=== PATIENT | female | born 1940 | race Caucasian/White ===

== ENCOUNTER 2018-04-03 06:42 | Day surgery (SDC) | payer MEDICARE ==
[~2018-04-03 06:42] MED LIST: Lactated Ringers 1,000 ML IV SCH; Lidocaine 1%/Sod Bicarbonate in NS 8.4% 1 ML Syringe IDERM PRN; Sodium Chloride 0.9% 10 ML Syringe FLUSH PRN
[2018-04-03] MEDS ORDERED: Sodium Chloride 0.9% 50 ML SDV ONE (07:18)
[2018-04-03] MEDS ORDERED: Lidocaine 1% with EPINEPHrine 1:100,000 20 ML MDV ONE (07:18)
--- NOTE | 2018-04-03 07:32 | PCM.PREANE ---
Preanesthetic Assessment - Procedure Proposed Procedure: Anterior and Posterior Repair with possible Colpoclesis - Anesthesia/Transfusion/Family Hx Anesthesia History: Prior Anesthesia Without Reaction Family History of Anesthesia Reaction: No Transfusion History: No Prior Transfusion(s) Intubation History: Unknown - Review of Systems General: No Symptoms Pulmonary: No Symptoms Cardiovascular: No Symptoms, Other (pacemaker placed on 03/03/18 for complete heart block ) Gastrointestinal: No Symptoms Neurological: No Symptoms Other: Reports: None - Physical Assessment O2 Sat by Pulse Oximetry: 95 Respiratory Rate: 16 Vital Signs: Last Vital Signs Temp 36.8 C 04/03/18 06:45 Pulse 75 04/03/18 06:45 Resp 16 04/03/18 06:45 BP 144/88 H 04/03/18 06:45 Pulse Ox 95 04/03/18 06:45 ASA Class: 3 Mental Status: Alert & Oriented x3 Airway Class: Mallampati = 2 Dentition: Reports: Normal Dentition Thyro-Mental Finger Breadths: 2 Mouth Opening Finger Breadths: 4 ROM/Head Extension: Full (reports arthritis in neck) Lungs: Clear to Auscultation, Normal Respiratory Effort - Lab Values: Laboratory Last Values WBC 7.53 K/mm3 (3.98-10.04) 04/01/18 10:57 RBC 4.73 M/mm3 (3.98-5.22) 04/01/18 10:57 Hgb 13.4 gm/L (11.2-15.7) 04/01/18 10:57 Hct 40.8 % (34.1-44.9) 04/01/18 10:57 MCV 86.3 fl (79.4-94.8) 04/01/18 10:57 MCH 28.3 pg (25.6-32.2) 04/01/18 10:57 MCHC 32.8 g/dl (32.2-35.5) 04/01/18 10:57 RDW Std Deviation 46.7 fL (36.4-46.3) H 04/01/18 10:57 Plt Count 222 K/mm3 (182-369) 04/01/18 10:57 MPV 10.7 fl (9.4-12.3) 04/01/18 10:57 Neut % (Auto) 62.9 % (34.0-71.1) 04/01/18 10:57 Lymph % (Auto) 26.0 % (19.3-51.7) 04/01/18 10:57 Parker % (Auto) 9.0 % (4.7-12.5) 04/01/18 10:57 Eos % (Auto) 1.7 (0.7-5.8) 04/01/18 10:57 Baso % (Auto) 0.1 % (0.1-1.2) 04/01/18 10:57 Neut # (Auto) 4.73 K/mm3 (1.56-6.13) 04/01/18 10:57 Lymph # (Auto) 1.96 K/mm3 (1.18-3.74) 04/01/18 10:57 Parker # (Auto) 0.68 K/mm3 (0.24-0.36) H 04/01/18 10:57 Eos # (Auto) 0.13 K/mm3 (0.04-0.36) 04/01/18 10:57 Baso # (Auto) 0.01 K/mm3 (0.01-0.08) 04/01/18 10:57 Urine Color Yellow (Yellow) 04/01/18 10:57 Urine Appearance Clear (Clear) 04/01/18 10:57 Urine pH 7.0 (5.0-8.0) 04/01/18 10:57 Ur Specific [place] 1.020 (1.005-1.030) 04/01/18 10:57 Urine Protein Negative (Negative) 04/01/18 10:57 Urine Glucose (UA) Negative (Negative) 04/01/18 10:57 Urine Ketones Negative (Negative) 04/01/18 10:57 Urine Occult Blood Negative (Negative) 04/01/18 10:57 Urine Nitrite Negative (Negative) 04/01/18 10:57 Urine Bilirubin Negative (Negative) 04/01/18 10:57 Urine Urobilinogen 0.2 (0.2-1.0) 04/01/18 10:57 Ur Leukocyte Esterase Trace (Negative) H 04/01/18 10:57 - Allergies Allergies/Adverse Reactions: Allergies Allergy/AdvReac Type Severity Reaction Status Date / Time Sulfa (Sulfonamide Allergy Rash Verified 04/02/18 17:34 Antibiotics) - Blood Blood Available: No - Anesthesia Plan Pre-Op Medication Ordered: None - Acknowledgements Anesthesia Type Planned: General Anesthesia Pt an Appropriate Candidate for the Planned Anesthesia: Yes Alternatives and Risks of Anesthesia Discussed w Pt/Guardian: Yes Pt/Guardian Understands and Agrees with Anesthesia Plan: Yes PreAnesthesia Questionnaire HEENT History: Reports: Impaired Vision, Other (See Below) Other HEENT History: wears glasses Cardiovascular History: Reports: High Cholesterol, Pacemaker Respiratory History: Reports: None Gastrointestinal History: Reports: Diverticulosis Genitourinary History: Reports: Other (See Below) Other Genitourinary History: cystocele DIRECTOR DATA MANAGEMENT History: Reports: , Other (See Below) Other OB/BYN History: bacterial vaginosis, pelvic relaxation, vaginal discahrge Musculoskeletal History: Reports: Arthritis, Osteoarthritis, Osteoporosis, Other (See Below) Other Musculoskeletal History: scoliosis Neurological History: Reports: None Psychiatric History: Reports: Other (See Below) Other Psychiatric History: insomnia Endocrine/Metabolic History: Reports: None Hematologic History: Reports: None Immunologic History: Reports: None Oncologic (Cancer) History: Reports: None Dermatologic History: Reports: Other (See Below) Other Dermatologic History: skin lipoma, herpes zoster - Past Surgical History Head Surgeries/Procedures: Reports: None HEENT Surgical History: Reports: Tonsillectomy Cardiovascular Surgical History: Reports: None Respiratory Surgical History: Reports: None GI Surgical History: Reports: Colonoscopy Female Surgical History: Reports: Hysterectomy Endocrine Surgical History: Reports: None Neurological Surgical History: Reports: None Musculoskeletal Surgical History: Reports: Other (See Below) Other Musculoskeletal Surgeries/Procedures:: bilateral hip replacements, bilateral knee replacements, shoulder replacement Oncologic Surgical History: Reports: None - SUBSTANCE USE Smoking Status *Q: Never Smoker Recreational Drug Use History: No - HOME MEDS Home Medications: Home Meds Ca Carbonate/Vitamin D3/Vit K [Calcium + D Soft Chewable Tab] 1 tab PO DAILY 05/13 [History] Cholecalciferol (Vitamin D3) [Vitamin D3] 1,000 unit PO DAILY 04/02/18 [History] Dorzolamide HCl/Timolol Maleat [Cosopt Eye Drops] 1 drop EYEBOTH BID 04/02/18 [ History] Zolpidem Tartrate [Ambien] 5 mg PO BEDTIME PRN 04/02/18 [History] - CURRENT (IN HOUSE) MEDS Current Meds: Current Medications Lactated Ringer's (Ringers, Lactated) 1,000 mls @ 125 mls/hr IV ASDIRECTED SHIELA Lidocaine/Sodium Bicarbonate (Buffered Lidocaine 1% In Ns 8.4%) 0.25 ml IDERM ONETIME PRN PRN Reason: Prior to IV Start Sodium Chloride (Saline Flush) 10 ml FLUSH ASDIRECTED PRN PRN Reason: Keep Vein Open Discontinued Medications Lidocaine/Epinephrine (Xylocaine 1% With Epinephrine 1:100,000) Confirm Administered Dose 20 ml .ROUTE .STK-MED ONE Stop: 04/03/18 07:19 Sodium Chloride (Normal Saline) Confirm Administered Dose 50 ml .ROUTE .STK-MED ONE Stop: 04/03/18 07:19
[2018-04-03] MEDS ORDERED: Propofol 200 MG/20 ML SDV ONE (07:39)
[2018-04-03] MEDS ORDERED: fentaNYL 100 MCG/2 ML SDV ONE (07:39)
[2018-04-03] MEDS ORDERED: Rocuronium 50 MG/5 ML Vial ONE (07:40)
[2018-04-03] MEDS ORDERED: ceFAZolin 1 GM Vial ONE (07:40)
[2018-04-03] MEDS ORDERED: Lidocaine 1% 4 ML ONE (07:40)
[2018-04-03] MEDS ORDERED: Phenylephrine/Normal Saline 100 MCG/ML 10 ML Syringe ONE ×2 (08:20→09:20)
[2018-04-03] MEDS ORDERED: Ketamine 500 mg/10 ML MDV ONE (08:32)
[2018-04-03] MEDS ORDERED: Neostigmine Methylsulfate 1 MG/ML 5 ML Syringe ONE (08:35)
[2018-04-03] MEDS ORDERED: Ondansetron 4 MG/2 ML SDV ONE (09:02)
[2018-04-03] MEDS ORDERED: Dexamethasone 4 MG/ML 5 ML MDV ONE (09:02)
[2018-04-03] MEDS ORDERED: Ondansetron 4 MG/2 ML SDV IVPUSH PRN ×2 (09:18→09:37)
[2018-04-03] MEDS ORDERED: Acetaminophen/oxyCODONE 325-5 MG Tab PO PRN (09:18)
--- NOTE | 2018-04-03 09:30 | PCM.OPNOTE ---
- General Post-Op/Procedure Note Date of Surgery/Procedure: 04/03/18 Operative Procedure(s): Partial colpocleisis, anterior and posterior vaginal repair with perineoplasty Findings: Grade 3 cystocele, grade 3 apical prolapse of the vagina, grade 1 rectocele, gaping vaginal introitus, status post hysterectomy Pre Op Diagnosis: 1. Cystocele. 2. Vaginal prolapse. 3. Rectocele Post-Op Diagnosis: Same Anesthesia Technique: General ET Tube Other Anesthesia Type: Lidocaine percent with epinephrine 15 mL total Primary Surgeon: Yazan Colby Secondary Surgeon: Enzo Carpenter Corn Detasseler Machine Operator: Daryl Hodge Reason Corn Detasseler Machine Operator Was Necessary: Retraction, assistance, quality of care and patient safety Role of Corn Detasseler Machine Operator: Retraction, assistance Fluid Replacement, Intraop: 1,200 EBL in mLs: 50 Complications: None Condition: Good Free Text/Narrative:: Surgery duration: 37 minutes Procedure: The patient was taken the operating room and placed in supine position on the operating table. She has signed a consent. Gen. endotracheal anesthesia was administered. The patient been given 2 g of Ancef and had sequential compression stockings in place. She was placed in a dorsal lithotomy position. After adequate prep and drape procedure was performed. The vaginal apex was identified and was noted to drop away down to approximate 1 cm outside the vagina. Epithelium was infiltrated lidocaine quarter percent with epinephrineapproximate 5 mL. The inverted vaginal vault was then denuded of epithelium to the level of the upper vagina. At this point the pursestring sutures of 0 Monocryl placed. Partially 5 sutures were placed approximately 5-8 mm apart. The edges and tied down starting at the most distal one and inverting the vagina cephalad. Anterior para was then performed. The epithelium overlying the cystocele was infiltrated with lidocaine quarter percent with epinephrine. The epithelium was undermined and incised midline. It was dissected bilaterally. 3 trapezoidal shaped sutures were then placed using 0 Monocryl to reduce the cystocele. The excess epithelium was then removed and the epithelium was reapproximated using a short running stitch of 3-0 Monocryl. The epithelium overlying the colpocleisis was then reapproximated from [id number] with 3-0 Monocryl in a short running suture. As Small posterior vaginal repair and perineoplasty was then performed. The vagina was found to be gaping with four finger breath caliber. The upper end of the rectocele was identified and grasped midline with an Allis clamp and the epithelium bilaterally at the 4:00 and 8 o'clock position were grasped in such location and approximated midline allowed for 2 fingerbreadths caliber to the vagina. Area was infiltrated with the same lidocaine quarter percent with epinephrine solutionapproximate 5 mL. Th same overlying this area incised in a daylin-shaped pattern. The lateral vaginal tissue was then reapproximated midline with approximately 4-5 V-type stitches of 0 Monocryl. The epithelium was reapproximated midline and the remainder of the perineum was closed in an episiotomy fashion using 3-0 Monocryl. At the end of the case the patient had fulfilling depth to the vagina and 2 for breath caliber to the vaginal opening. Sponge instrument and needle counts correct procedure. She was returned to a supine position and awakened from general endotracheal anesthesia.
--- NOTE | 2018-04-03 09:36 | PCM.POSTAN ---
POST ANESTHESIA ASSESSMENT - MENTAL STATUS Mental Status: Alert - VITAL SIGNS Pulse Rate: 68 SaO2: 95 Resp Rate: 12 Blood Pressure: 123/67 Temperature: 36.2 C - RESPIRATORY Respiratory Status: Respiratory Rate WNL, Airway Patent, O2 Saturation Stable - CARDIOVASCULAR CV Status: Pulse Rate WNL, Blood Pressure Stable - GASTROINTESTINAL GI Status: No Symptoms - PAIN Pain Score: 0 - POST OP HYDRATION Hydration Status: Adequate & Stable
[2018-04-03] MEDS ORDERED: fentaNYL 100 MCG/2 ML SDV IVPUSH PRN (09:37)
[2018-04-03] MEDS ORDERED: diphenhydrAMINE 50 MG/ML SDV IVPUSH PRN (09:37)
[2018-04-03] MEDS ORDERED: Lactated Ringers 1,000 ML ONE (12:00)
--- NOTE | 2018-04-03 12:47 | PCM48HPAN ---
Post Anesthesia Note - EVALUATION WITHIN 48HRS OF ANESTHETIC Vital Signs in Normal Range: Yes Patient Participated in Evaluation: Yes Respiratory Function Stable: Yes Airway Patent: Yes Cardiovascular Function Stable: Yes Hydration Status Stable: Yes Pain Control Satisfactory: Yes Nausea and Vomiting Control Satisfactory: Yes Mental Status Recovered: Yes Pulse Rate: 68 SaO2: 99 Resp Rate: 18 Temperature: 36.2 C Blood Pressure: 123/67
== END 2018-04-03 11:53 | disposition home or self-care (01) ==
LOC: JD.SDS 06:42
PROVIDERS: ATTEND Obstetrics & Gynecology
DX: N81.10 Cystocele, unspecified (principal); N81.6 Rectocele; Z88.2 Allergy status to sulfonamides; E78.00 Pure hypercholesterolemia, unspecified; M19.90 Unspecified osteoarthritis, unspecified site; M81.0 Age-related osteoporosis without current pathological fracture; Z79.899 Other long term (current) drug therapy; Z95.0 Presence of cardiac pacemaker
CPT/HCPCS: 36415; 57120; 80048; 81003; 85025; 93005; J0690; J1100; J2001; J2405; J2710; J3010; J7120; J2704

== ENCOUNTER 2018-12-04 10:46 | Day surgery (SDC) | payer MEDICARE ==
[2018-12-04] MEDS ORDERED: Lidocaine 1% 2 ML ONE ×2 (11:00)
[2018-12-04] MEDS ORDERED: Propofol 200 MG/20 ML SDV ONE ×2 (11:00→12:33)
--- NOTE | 2018-12-04 11:20 | PCM.PREANE ---
Preanesthetic Assessment - Anesthesia/Transfusion/Family Hx Anesthesia History: Prior Anesthesia Without Reaction Family History of Anesthesia Reaction: No Transfusion History: No Prior Transfusion(s) Intubation History: Unknown - Physical Assessment NPO Status Date: 12/04/18 NPO Status Time: 00:00 Pulse: 77 O2 Sat by Pulse Oximetry: 95 Respiratory Rate: 16 Blood Pressure: 149/78 Temperature: 98.2 C ASA Class: 2 Mental Status: Alert & Oriented x3 Airway Class: Mallampati = 2 Dentition: Reports: Normal Dentition Thyro-Mental Finger Breadths: 3 Mouth Opening Finger Breadths: 3 Lungs: Clear to Auscultation, Normal Respiratory Effort Cardiovascular: Regular Rate, Regular Rhythm - Allergies Allergies/Adverse Reactions: Allergies Allergy/AdvReac Type Severity Reaction Status Date / Time Sulfa (Sulfonamide Allergy Rash Verified 12/03/18 12:54 Antibiotics) aspirin Allergy Rectal Uncoded 12/03/18 12:54 Bleeding - Acknowledgements Anesthesia Type Planned: MAC Pt an Appropriate Candidate for the Planned Anesthesia: Yes Alternatives and Risks of Anesthesia Discussed w Pt/Guardian: Yes Pt/Guardian Understands and Agrees with Anesthesia Plan: Yes PreAnesthesia Questionnaire HEENT History: Reports: Impaired Vision, Other (See Below) Other HEENT History: wears glasses Cardiovascular History: Reports: CAD, High Cholesterol, Pacemaker (pacemaker d/ t complete heart block, 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) Respiratory History: Reports: None Gastrointestinal History: Reports: Diverticulosis, Hemorrhoids, Other (See Below ) Other Gastrointestinal History: DIVERTICULOSIS Genitourinary History: Reports: Other (See Below) Other Genitourinary History: cystocele ELECTRICIAN STATION ASSISTANT History: Reports: , Other (See Below) Other OB/BYN History: bacterial vaginosis, pelvic relaxation, vaginal discahrge Musculoskeletal History: Reports: Arthritis, Osteoarthritis, Osteoporosis, Other (See Below) Other Musculoskeletal History: scoliosis Neurological History: Reports: None Psychiatric History: Reports: Other (See Below) Other Psychiatric History: insomnia Endocrine/Metabolic History: Reports: Vitamin D Deficiency Hematologic History: Reports: None Immunologic History: Reports: None Oncologic (Cancer) History: Reports: None Dermatologic History: Reports: Other (See Below) Other Dermatologic History: skin lipoma, herpes zoster - Infectious Disease History Infectious Disease History: Reports: Shingles - Past Surgical History Head Surgeries/Procedures: Reports: None HEENT Surgical History: Reports: Adenoidectomy, Tonsillectomy Cardiovascular Surgical History: Reports: Pacer Respiratory Surgical History: Reports: None GI Surgical History: Reports: Appendectomy, Colonoscopy Female Surgical History: Reports: Hysterectomy Male Surgical History: Reports: None Endocrine Surgical History: Reports: None Neurological Surgical History: Reports: None Musculoskeletal Surgical History: Reports: Other (See Below) Other Musculoskeletal Surgeries/Procedures:: bilateral hip replacements, bilateral knee replacements, shoulder replacement Oncologic Surgical History: Reports: None - SUBSTANCE USE Smoking Status *Q: Never Smoker Recreational Drug Use History: No - HOME MEDS Home Medications: Home Meds Ca Carbonate/Vitamin D3/Vit K [Calcium + D Soft Chewable Tab] 1 tab PO DAILY 05/13 [History] Cholecalciferol (Vitamin D3) [Vitamin D3] 1,000 unit PO DAILY 04/02/18 [History] Dorzolamide HCl/Timolol Maleat [Cosopt Eye Drops] 1 drop EYEBOTH BID 04/02/18 [ History] Zolpidem Tartrate [Ambien] 5 mg PO BEDTIME PRN 04/02/18 [History] Acetaminophen [Tylenol Extra Strength] 1,000 mg PO Q6H PRN 12/03/18 [History] - CURRENT (IN HOUSE) MEDS Current Meds: Current Medications Lactated Ringer's (Ringers, Lactated) 1,000 mls @ 125 mls/hr IV ASDIRECTED SHIELA Stop: 12/04/18 23:00 Lidocaine/Sodium Bicarbonate (Buffered Lidocaine 1% In Ns 8.4%) 0.25 ml IDERM ONETIME PRN PRN Reason: Prior to IV Start Stop: 12/04/18 18:00 Sodium Chloride (Saline Flush) 10 ml FLUSH ASDIRECTED PRN PRN Reason: Keep Vein Open Stop: 12/04/18 18:00 Discontinued Medications Lidocaine HCl (Xylocaine-Mpf 1%) Confirm Administered Dose 2 mls @ as directed .ROUTE .STK-MED ONE Stop: 12/04/18 11:01 Lidocaine HCl (Xylocaine-Mpf 1%) Confirm Administered Dose 2 mls @ as directed .ROUTE .STK-MED ONE Stop: 12/04/18 11:01 Propofol (Diprivan 20 Ml) Confirm Administered Dose 200 mg .ROUTE .STK-MED ONE Stop: 12/04/18 11:01
[2018-12-04] MEDS ORDERED: Lactated Ringers 1,000 ML ONE (12:44)
--- NOTE | 2018-12-04 12:57 | PCM48HPAN ---
Post Anesthesia Note - EVALUATION WITHIN 48HRS OF ANESTHETIC Vital Signs in Normal Range: Yes Patient Participated in Evaluation: Yes Respiratory Function Stable: Yes Airway Patent: Yes Cardiovascular Function Stable: Yes Hydration Status Stable: Yes Pain Control Satisfactory: Yes Nausea and Vomiting Control Satisfactory: Yes Mental Status Recovered: Yes Pulse Rate: 76 SaO2: 95 Resp Rate: 15 Temperature: 98.2 C Blood Pressure: 110/82
--- NOTE | 2018-12-04 13:11 | PCM.PRNOTE ---
- Free Text/Narrative Note: Operative Report Date of Surgery/Procedure: December 04, 2018 Operative Procedure: Incomplete Colonoscopy with biopsy and hemorrhoid banding Pre Op Diagnosis: Hematochezia and bright red blood per rectum Post-Op Diagnosis: Proctitis Surgeon: Francine Ramirez Anesthesia Technique: MAC Anesthesia Provider: Marlyn Sheth CRNA IV Fluid Replacement, Intraop: . See anesthesia report Output, Urine Amount: 0cc EBL : 0cc Findings: 1. Inability to pass scope beyond 35 cm 2. Diverticulosis 3. Rectal polyp 4. Proctitis 5. Internal and external hemorrhoids Specimens: 1. Rectal polyp 2. Rectal mucosa Indication: The patient is a 78 year-old lady who presented to the outpatient clinic requesting evaluation of hematochezia and bright of blood per rectum. The patient has a history of bleeding AVM and diverticulosis. We discussed the procedure of a colonoscopy including the polypectomy and biopsy. We also discussed the possibility of doing hemorrhoid banding in case this is the cause of her bleeding. Risks of bleeding and perforation were discussed, the patient understood and wished to proceed. Written and consent was obtained Description of the procedure: The patient was brought to the endoscopy suite and placed in the left lateral decubitus position. Appropriate monitors were applied. The patient was given MAC anesthesia. An anorectal examination was performed, revealing external skin tags and external hemorrhoids. The scope was placed into the rectum and advanced to the descending colon. The Colonoscope could not be advanced past 35 cm as the patient's colon was tortuous and there were multiple diverticula present. The patient's position was changed, as well as reinserting and withdrawing the scope. However, after these maneuvers, we were still not able to advance the scope any farther. At this point, the scope was withdrawn, paying careful attention to the mucosa. The patient had excellent bowel prep, allowing for visualization of greater than 95 % of the mucosa in the visualized portion of the colon. Erythema, inflammation was noted in the rectum. A 2-3 mm semi-sessile polyp was also seen in the rectum. The polyp was removed using cold biopsy forceps. A biopsy was taken of the rectal mucosa in the area that appeared inflamed using cold biopsy forceps. The scope was retroflexed and no abnormalities were noted, except for some hemorrhoidal tissue. The scope was then removed and the hemorrhoid banding device was then placed into the anal canal with insertion of the associated anoscope. Rubber bands were placed on three Hemorrhoids. The endoscope and banding device were then removed. The patient tolerated the procedure well. She was awakened and taken back to the preoperative area. Complications: none apparent Condition: Good, transported to PACU in stable condition Francine Ramirez MD General Surgery
--- NOTE | 2018-12-04 13:11 | PCM.OPNOTE ---
- General Post-Op/Procedure Note Date of Surgery/Procedure: 12/04/18 Operative Procedure(s): Incomplete colonoscopy with polypectomy and hemorrhoid banding Findings: Inability to pass scope beyond 35 cm Diverticulosis Rectal polyp Proctitis Internal and external hemorrhoids Pre Op Diagnosis: Hematochezia and BRBPR Post-Op Diagnosis: Proctitis Anesthesia Technique: [facility] Primary Surgeon: Francine Ramirez Anesthesia Provider: Marlyn Sheth Pathology: 1. Rectal polyp 2. Rectal biopsy Output, Urine Amount: 0 EBL in mLs: 0 Complications: none apparent Condition: Good
== END 2018-12-04 14:05 | disposition home or self-care (01) ==
LOC: JD.SDS 10:46
PROVIDERS: ATTEND Surgery
DX: K57.31 Diverticulosis of large intestine without perforation or abscess with bleeding (principal); K62.1 Rectal polyp; K62.89 Other specified diseases of anus and rectum; K52.9 Noninfective gastroenteritis and colitis, unspecified; K62.5 Hemorrhage of anus and rectum; K64.4 Residual hemorrhoidal skin tags; K64.8 Other hemorrhoids; E78.00 Pure hypercholesterolemia, unspecified; I44.2 Atrioventricular block, complete; Z88.2 Allergy status to sulfonamides; Z88.6 Allergy status to analgesic agent; Z95.0 Presence of cardiac pacemaker; Z79.899 Other long term (current) drug therapy
CPT/HCPCS: 45380; 46221; J2001; J2704; J7120

== ENCOUNTER 2021-06-27 19:33 | Emergency (ER) | payer MEDICARE ==
--- NOTE | 2021-06-27 21:18 | CR ---
Right femur: AP and lateral views of the right femur were obtained. Comparison: No prior femur study is available. Knee prosthesis and hip prosthesis are noted. Components appear aligned. Underlying bony structures are intact. Fracture is seen at the junction of the right superior pubic ramus to the acetabulum. No additional abnormality is appreciated. Impression: 1. Fracture at the junction of the right superior pubic ramus to the acetabulum. 2. Knee prosthesis and hip prosthesis which are aligned. No other acute abnormality is appreciated. Diagnostic code #3
--- NOTE | 2021-06-27 21:18 | CR ---
Pelvis and right hip: AP view of the pelvis was obtained as well as AP and crosstable lateral views of the right hip. Comparison: No prior hip or pelvis imaging is available. Fracture is seen at the junction of the right superior pubic ramus to the acetabulum. Slight irregularity is identified within the inferior aspect of the inferior right pubic ramus possibly due to a small additional fracture. Sacroiliac joints are within normal limits. Slight degenerative change is partially visualized within the spine. Bilateral hip prostheses are noted. Impression: 1. Fracture at the junction of the superior pubic ramus to the acetabulum. 2. Possible small fracture off the inferior aspect of the inferior right pubic ramus. 3. Bilateral hip prostheses which are aligned. Diagnostic code #3
--- NOTE | 2021-06-27 23:20 | EDM.PDOC ---
ED HPI GENERAL MEDICAL PROBLEM - General Chief Complaint: Lower Extremity Injury/Pain Stated Complaint: FELL & INJURED RIGHT HIP Time Seen by Provider: 06/27/21 21:36 Source of Information: Reports: Patient, Family History Limitations: Reports: No Limitations - History of Present Illness INITIAL COMMENTS - FREE TEXT/NARRATIVE: The patient presents with right hip pain. She was at her sons house. A dog was running around and he ran into the patient and knocked her over on her right side. She did not hit her head or hurt her neck. She has right hip pain. 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 She has no chest pain or abdominal pain. Onset: Sudden Duration: Hour(s): Location: Reports: Lower Extremity, Right (hip) Quality: Reports: Sharp Severity: Moderate Improves with: Reports: Immobilization Worsens with: Reports: Movement Context: Reports: Trauma (fall) Associated Symptoms: Reports: No Other Symptoms right hip Pain Score (Numeric/FACES): 8 - Related Data Allergies Allergy/AdvReac Type Severity Reaction Status Date / Time Sulfa (Sulfonamide Allergy Rash Verified 06/27/21 20:32 Antibiotics) aspirin Allergy Rectal Uncoded 06/27/21 20:32 Bleeding Home Meds: Home Meds Calcium Carb/Vitamin D3/Vit K1 [Calcium + D Soft Chewable Tab] 1 tab PO DAILY 04/02/18 [History] Cholecalciferol (Vitamin D3) [Vitamin D3] 1,000 unit PO DAILY 04/02/18 [History] Dorzolamide HCl/Timolol Maleat [Cosopt Eye Drops] 1 drop EYEBOTH BID 04/02/18 [History] Zolpidem Tartrate [Ambien] 5 mg PO BEDTIME PRN 04/02/18 [History] Acetaminophen [Tylenol Extra Strength] 1,000 mg PO Q6H PRN 12/03/18 [History] Docusate Sodium [Colace] 100 mg PO BID 20 Days #40 cap 12/04/18 [Rx] Past Medical History HEENT History: Reports: Impaired Vision, Other (See Below) Other HEENT History: wears glasses Cardiovascular History: Reports: CAD, High Cholesterol, Pacemaker Respiratory History: Reports: None Gastrointestinal History: Reports: Diverticulosis, Hemorrhoids, Other (See Below) Other Gastrointestinal History: DIVERTICULOSIS Genitourinary History: Reports: Other (See Below) Other Genitourinary History: cystocele LUMBER TALLIER History: Reports: , Other (See Below) Other LUMBER TALLIER History: bacterial vaginosis, pelvic relaxation, vaginal discahrge Musculoskeletal History: Reports: Arthritis, Osteoarthritis, Osteoporosis, Other (See Below) Other Musculoskeletal History: scoliosis Neurological History: Reports: None Psychiatric History: Reports: Other (See Below) Other Psychiatric History: insomnia Endocrine/Metabolic History: Reports: Vitamin D Deficiency Hematologic History: Reports: None Immunologic History: Reports: None Oncologic (Cancer) History: Reports: None Dermatologic History: Reports: Other (See Below) Other Dermatologic History: skin lipoma, herpes zoster - Infectious Disease History Infectious Disease History: Reports: Shingles - Past Surgical History Head Surgeries/Procedures: Reports: None HEENT Surgical History: Reports: Adenoidectomy, Tonsillectomy Cardiovascular Surgical History: Reports: Pacer Respiratory Surgical History: Reports: None GI Surgical History: Reports: Appendectomy, Colonoscopy Female Surgical History: Reports: Hysterectomy Endocrine Surgical History: Reports: None Neurological Surgical History: Reports: None Musculoskeletal Surgical History: Reports: Other (See Below) Other Musculoskeletal Surgeries/Procedures:: bilateral hip replacements, bilateral knee replacements, shoulder replacement Oncologic Surgical History: Reports: None Social & Family History - Tobacco Use Tobacco Use Status *Q: Never Tobacco User - Caffeine Use Caffeine Use: Reports: Coffee, Soda - Recreational Drug Use Recreational Drug Use: No Review of Systems - Review of Systems Review Of Systems: See Below Constitutional: Reports: No Symptoms Eyes: Reports: No Symptoms Ears: Reports: No Symptoms Nose: Reports: No Symptoms Mouth/Throat: Reports: No Symptoms Respiratory: Reports: No Symptoms Cardiovascular: Reports: No Symptoms GI/Abdominal: Reports: No Symptoms Genitourinary: Reports: No Symptoms Musculoskeletal: Reports: Other (right hip pain) ED EXAM, GENERAL - Physical Exam Exam: See Below Exam Limited By: No Limitations General Appearance: Alert, No Apparent Distress Ears: Normal External Exam Nose: Normal Inspection Head: Atraumatic, Normocephalic Neck: Normal Inspection Respiratory/Chest: No Respiratory Distress, Lungs Clear, Normal Breath Sounds Cardiovascular: Regular Rate, Rhythm, No Edema, No Murmur GI/Abdominal: Soft, Non-Tender, No Organomegaly, No Mass Back Exam: Normal Inspection Extremities: Other (She had no pain upon palpation to the right hip but 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 She has good sensation and pulses distally.) Course - Vital Signs Last Recorded V/S: Last Vital Signs Temp 98 F 06/27/21 20:28 Pulse 101 H 06/27/21 20:28 Resp 18 06/27/21 20:28 BP 160/100 H 06/27/21 20:28 Pulse Ox 94 L 06/27/21 20:28 - Re-Assessments/Exams Free Text/Narrative Re-Assessment/Exam: 06/27/21 23:16 It was very busy in the ER. Delayed in seeing patient. X-rays were done prior to me seeing her. The x-ray of her hip shows fracture at the junction of the superior pubic ramus to the acetabulum. Possible small fracture off the infer ior aspect of the inferior right pubic ramus. Bilateral hip prosthesis which are aligned. The x-ray of her right femur shows fracture at the junction of he right superior pubic ramus to the acetabulum. Knee prosthesis and hip prosthesis which are aligned. No other acute abnormality is appreciated. I offered to admit the patient but she did not want to be admitted. I will try to discharge her home. I did offer her something for pain. She did not want that either. I will get her a walker. Departure - Departure Time of Disposition: 23:20 Disposition: Home, Self-Care 01 Condition: Good Clinical Impression: Fall Qualifiers: Encounter type: initial encounter Qualified Code(s): W19.XXXA - Unspecified fall, initial encounter Fracture of superior pubic ramus Qualifiers: Encounter type: initial encounter Fracture type: closed Laterality: right Qualified Code(s): S32.511A - Fracture of superior rim of right pubis, initial encounter for closed fracture - Discharge Information *PRESCRIPTION DRUG MONITORING PROGRAM REVIEWED*: Not Applicable *COPY OF PRESCRIPTION DRUG MONITORING REPORT IN PATIENT JOSE ARMANDO: Not Applicable Referrals: Carlee Moran MD [Primary Care Provider] - Yosi Asencio MD [Physician] - 1 Week Additional Instructions: Take tylenol or motrin as needed for pain. Follow up with Dr Asencio within a week. Follow up with physical therapy. Try to use the walker to walk. Please return if you are worse. Sepsis Event Note (ED) - Evaluation Sepsis Screening Result: No Definite Risk - Focused Exam Vital Signs: Vital Signs Temp Pulse Resp BP Pulse Ox 06/27/21 20:28 98 F 101 H 18 160/100 H 94 L
== END 2021-06-27 23:42 | disposition home or self-care (01) ==
LOC: JD.ED 19:33
DX: S32.511A Fracture of superior rim of right pubis, initial encounter for closed fracture (principal); E78.00 Pure hypercholesterolemia, unspecified; I25.10 Atherosclerotic heart disease of native coronary artery without angina pectoris; Z88.2 Allergy status to sulfonamides; Z88.6 Allergy status to analgesic agent; Z79.899 Other long term (current) drug therapy; W51.XXXA Accidental striking against or bumped into by another person, initial encounter
CPT/HCPCS: 73502-26-RT; 73502-RT; 73552-26-RT; 73552-RT; 99283; 99284-25

== ENCOUNTER 2024-12-21 02:10 | Emergency (ER) | payer MEDICARE ==
[2024-12-21] MEDS: Acetaminophen 325 MG Tab PO ONE (02:39)
[2024-12-21] MEDS ORDERED: Naloxone 0.4 MG/ML SDV IVPUSH PRN (02:56)
[2024-12-21] MEDS: fentaNYL 100 MCG/2 ML SDV IVPUSH ONE (03:16)
== END 2024-12-21 09:30 | disposition home or self-care (01) ==
LOC: JD.ED 02:10
DX: S32.89XA Fracture of other parts of pelvis, initial encounter for closed fracture (principal); I25.10 Atherosclerotic heart disease of native coronary artery without angina pectoris; E78.00 Pure hypercholesterolemia, unspecified; Z95.0 Presence of cardiac pacemaker; Z88.2 Allergy status to sulfonamides; Z88.6 Allergy status to analgesic agent; Z79.899 Other long term (current) drug therapy; Z90.710 Acquired absence of both cervix and uterus; W18.39XA Other fall on same level, initial encounter; Y93.89 Activity, other specified
CPT/HCPCS: 73502; 96374; 99283; A9270; J3010

== ENCOUNTER 2025-02-07 06:00 | Day surgery (SDC) | payer MEDICARE ==
[~2025-02-07 06:00] MED LIST changes: -Lactated Ringers 1,000 ML IV SCH; -Lidocaine 1%/Sod Bicarbonate in NS 8.4% 1 ML Syringe IDERM PRN; +Propofol 200 MG/20 ML SDV ONE; +Sodium Chloride 0.9% 10 ML Syringe FLUSH SCH; +ceFAZolin 2 GM Vial ONE
[2025-02-07] MEDS: Lactated Ringers 1,000 ML IV SCH (06:20)
[2025-02-07] MEDS: Bupivacaine 0.25% 10 ML SDV ONE (07:05)
[2025-02-07] MEDS: Lidocaine 1% 10 ML MDV ONE (07:05)
== END 2025-02-07 08:00 | disposition home or self-care (01) ==
LOC: JD.SDS 06:00
PROVIDERS: ATTEND Orthopaedic Surgery
DX: G56.11 Other lesions of median nerve, right upper limb (principal); I10 Essential (primary) hypertension; E78.5 Hyperlipidemia, unspecified; Z88.2 Allergy status to sulfonamides; Z88.8 Allergy status to other drugs, medicaments and biological substances; Z79.899 Other long term (current) drug therapy
CPT/HCPCS: 64721; J0665; J0690; J2003; J2704; J7120